=== PATIENT | female | born 2000 | race African-American/Black ===

== ENCOUNTER 2019-01-14 15:33 | Observation (INO) | payer MEDICAID ==
[~2019-01-14] VITALS: Ht 160 cm; Wt 91.2 kg
[2019-01-14] MEDS ORDERED: ONDANSETRON HCL 4MG/2ML INJ IV NR (16:30)
[2019-01-14] MEDS ORDERED: LACTATED RINGERS 1,000 ML IV SCH (16:30)
[2019-01-14 17:14] LABS: CLARITY URINE CLEAR (CLEAR); COLOR URINE YELLOW (YELLOW); KETONES URINE NEGATIVE (NEGATIVE); LEUKOCYTE ESTERASE URINE NEGATIVE (NEGATIVE); NITRITE URINE NEGATIVE (NEGATIVE); OCCULT BLOOD URINE NEGATIVE (NEGATIVE); PROTEIN URINE NEGATIVE (NEGATIVE); UROBILINOGEN URINE 0.2 E.U./dL (0.2-1.0)
[2019-01-14 17:16] LABS: BASOPHILS % 0.8 % (0.0-2.0); EOSINOPHILS % 1.7 % (0.0-5.0); HEMATOCRIT. 35.3 % (36.0-48.0); HEMOGLOBIN. 11.6 g/dL (12.0-16.0); LYMPHOCYTES % 20.3 % (20.0-50.0); MEAN CORPUSCULAR HEMOGLOBIN 28.4 pg (28.0-32.0); MEAN CORPUSCULAR VOLUME 86.6 fL (81.0-99.0); MEAN PLATELET VOLUME 8.8 fl (7.4-10.4); MONOCYTES % 6.6 % (2.0-8.0); NEUTROPHILS % 70.6 % (40.0-76.0); PLATELET 278 x1000/uL (130-400); RED BLOOD CELL COUNT 4.07 mill/uL (4.2-5.4)
[2019-01-14 17:21] LABS: CHLORIDE 109 mEq/L (98-107)
[2019-01-14] MEDS ORDERED: ACETAMINOPHEN 500MG TABLET PO NR (18:30)
[2019-01-14] MEDS ORDERED: ACETAMINOPHEN 500MG TABLET PO SCH (18:30)
== END 2019-01-14 19:05 | disposition home or self-care (01) ==
LOC: 8 EST LDRP 15:33
PROVIDERS: ADMIT Obstetrics & Gynecology; ATTEND Obstetrics & Gynecology
DX: O21.2 Late vomiting of pregnancy (principal); O62.9 Abnormality of forces of labor, unspecified; O26.892 Other specified pregnancy related conditions, second trimester; R51 Headache; Z3A.25 25 weeks gestation of pregnancy
CPT/HCPCS: 36415; 76805; 76818; 80053; 81003; 85025; 96374; 99281; G0378; J2405; 96360

== ENCOUNTER 2019-01-19 17:24 | Observation (INO) | payer SELFPAY ==
[~2019-01-19] VITALS: Ht 160 cm; Wt 91.2 kg
[2019-01-19] MEDS ORDERED: PNV11TAB5 PO (18:24)
[2019-01-19 19:08] LABS: CLARITY URINE CLOUDY (CLEAR); COLOR URINE YELLOW (YELLOW); KETONES URINE TRACE (NEGATIVE); LEUKOCYTE ESTERASE URINE 2+ (NEGATIVE); NITRITE URINE NEGATIVE (NEGATIVE); OCCULT BLOOD URINE NEGATIVE (NEGATIVE); PH URINE 6.5 (4.5-8.0); PROTEIN URINE TRACE (NEGATIVE); SPECIFIC GRAVITY URINE 1.031 (1.005-1.030)
[2019-01-19] MEDS ORDERED: FLUCONAZOLE 150MG TABLET PO NR (20:00)
[2019-01-19] MEDS ORDERED: CEFTRIAXONE SODIUM 250 MG/VIAL IM NR (20:45)
== END 2019-01-19 22:30 | disposition home or self-care (01) ==
LOC: ER 17:24 → 8 EST LDRP 17:39
PROVIDERS: ADMIT Obstetrics & Gynecology; ATTEND Obstetrics & Gynecology
DX: O26.892 Other specified pregnancy related conditions, second trimester (principal); R10.9 Unspecified abdominal pain; O99.89 Other specified diseases and conditions complicating pregnancy, childbirth and the puerperium; M54.9 Dorsalgia, unspecified; N89.8 Other specified noninflammatory disorders of vagina; Z3A.26 26 weeks gestation of pregnancy
CPT/HCPCS: 81003; 96372; 99281; G0378; J0696

== ENCOUNTER 2019-02-10 18:51 | Observation (INO) | payer MEDICAID ==
[~2019-02-10] VITALS: Ht 160 cm; Wt 96.2 kg
[~2019-02-10 18:51] MED LIST: PNV11TAB5 PO
[2019-02-10 19:49] LABS: CLARITY URINE CLOUDY (CLEAR); COLOR URINE YELLOW (YELLOW); KETONES URINE 2+ (NEGATIVE); LEUKOCYTE ESTERASE URINE 1+ (NEGATIVE); NITRITE URINE NEGATIVE (NEGATIVE); OCCULT BLOOD URINE NEGATIVE (NEGATIVE); PROTEIN URINE NEGATIVE (NEGATIVE); SPECIFIC GRAVITY URINE 1.015 (1.005-1.030)
[2019-02-10] MEDS ORDERED: DEXT 5%/LACTATED RINGERS 1,000 ML IV STA (19:57)
[2019-02-10] MEDS ORDERED: DEXT 5%/LACTATED RINGERS 1,000 ML IV SCH (19:58)
[2019-02-10] MEDS ORDERED: PREN-176 MT (22:15)
== END 2019-02-10 22:30 | disposition home or self-care (01) ==
LOC: 8 EST LDRP 18:51
PROVIDERS: ADMIT Obstetrics & Gynecology; ATTEND Obstetrics & Gynecology
DX: O26.893 Other specified pregnancy related conditions, third trimester (principal); R50.9 Fever, unspecified; R10.9 Unspecified abdominal pain; Z3A.29 29 weeks gestation of pregnancy
CPT/HCPCS: 76805; 76818; 81003; 99281; G0378

== ENCOUNTER 2019-02-10 22:58 | Emergency (ER) | payer MEDICAID ==
[~2019-02-10] VITALS: Ht 160 cm; Wt 96.0 kg
[~2019-02-10 22:58] MED LIST changes: +PREN-176 MT
[2019-02-11 03:27] VITALS: BP 123/67
== END 2019-02-11 03:34 | disposition home or self-care (01) ==
LOC: ER 22:58
DX: J02.9 Acute pharyngitis, unspecified (principal); J45.909 Unspecified asthma, uncomplicated
CPT/HCPCS: 87070; 87430; 99283

== ENCOUNTER 2021-09-07 17:24 | Emergency (ER) | payer MEDICAID ==
[~2021-09-07] VITALS: Ht 160 cm; Wt 230.0 kg
[2021-09-07 18:21] VITALS: BP 137/62
[2021-09-07 19:04] LABS: HEMATOCRIT. 35.1 % (36.0-48.0); HEMOGLOBIN. 10.7 g/dL (12.0-16.0); MEAN CORPUSCULAR HEMOGLOBIN 21.7 pg (28.0-32.0); MEAN CORPUSCULAR VOLUME 71.2 fL (81.0-99.0); MEAN PLATELET VOLUME 9.4 fl (7.4-10.4); PLATELET 358 x1000/uL (130-400); RED BLOOD CELL COUNT 4.92 mill/uL (4.2-5.4); RED CELL DISTRIBUTION WIDTH 21.5 % (11.6-14.6)
[2021-09-07 19:08] LABS: CHLORIDE 107 mEq/L (98-107)
[2021-09-07 20:39] LABS: CLARITY URINE CLEAR (CLEAR); COLOR URINE YELLOW (YELLOW); KETONES URINE TRACE (NEGATIVE); LEUKOCYTE ESTERASE URINE NEGATIVE (NEGATIVE); NITRITE URINE NEGATIVE (NEGATIVE); OCCULT BLOOD URINE NEGATIVE (NEGATIVE); PH URINE 5.5 (4.5-8.0); PROTEIN URINE 1+ (NEGATIVE); SPECIFIC GRAVITY URINE 1.042 (1.005-1.030); UROBILINOGEN URINE 0.2 E.U./dL (0.2-1.0)
[2021-09-07 21:22] LABS: PLATELET ESTIMATE NORMAL
[2021-09-07] MEDS ORDERED: ALBU6.7H15 INH (21:36)
== END 2021-09-07 21:42 | disposition home or self-care (01) ==
LOC: ER 17:24
DX: U07.1 COVID-19 (principal); R10.11 Right upper quadrant pain
CPT/HCPCS: 36415; 80053; 81003; 81025; 85025; 87426; 99283

== ENCOUNTER 2021-12-17 19:46 | Emergency (ER) | payer MEDICAID, OTHER ==
[~2021-12-17] VITALS: Ht 160 cm; Wt 108.0 kg
[~2021-12-17 19:46] MED LIST changes: +ALBU6.7H15 INH; +FERR89TA MT; +NITR-87 MT
[2021-12-17 19:55] VITALS: BP 132/81
[2021-12-17 20:57] LABS: BASOPHILS % 0.9 % (0.0-2.0); EOSINOPHILS % 4.7 % (0.0-5.0); HEMATOCRIT. 36.1 % (36.0-48.0); HEMOGLOBIN. 11.2 g/dL (12.0-16.0); LYMPHOCYTES % 58.5 % (20.0-50.0); MEAN CORPUSCULAR HEMOGLOBIN 24.4 pg (28.0-32.0); MEAN CORPUSCULAR VOLUME 78.6 fL (81.0-99.0); MEAN PLATELET VOLUME 8.5 fl (7.4-10.4); MONOCYTES % 9.8 % (2.0-8.0); NEUTROPHILS % 26.1 % (40.0-76.0); PLATELET 286 x1000/uL (130-400); RED CELL DISTRIBUTION WIDTH 18.9 % (11.6-14.6)
[2021-12-17 21:04] LABS: CHLORIDE 107 mEq/L (98-107)
[2021-12-17 21:19] LABS: B-HCG QUANTITATIVE < 1 mIU/mL (<3)
[2021-12-17 21:51] LABS: CLARITY URINE CLEAR (CLEAR); COLOR URINE YELLOW (YELLOW); KETONES URINE TRACE (NEGATIVE); LEUKOCYTE ESTERASE URINE NEGATIVE (NEGATIVE); NITRITE URINE NEGATIVE (NEGATIVE); OCCULT BLOOD URINE NEGATIVE (NEGATIVE); PROTEIN URINE NEGATIVE (NEGATIVE); SPECIFIC GRAVITY URINE 1.027 (1.005-1.030); UROBILINOGEN URINE 0.2 E.U./dL (0.2-1.0)
== END 2021-12-17 22:12 | disposition home or self-care (01) ==
LOC: ER 19:46
DX: O02.0 Blighted ovum and nonhydatidiform mole (principal)
CPT/HCPCS: 36415; 76801; 80053; 81003; 84702; 85025; 86850; 86900; 99284

== ENCOUNTER 2022-01-29 14:00 | Emergency (ER) | payer MEDICAID ==
[~2022-01-29] VITALS: Ht 160 cm; Wt 107.0 kg
[2022-01-29 14:15] VITALS: BP 123/69
[2022-01-29] MEDS ORDERED: ALBUTEROL 6.7GM HFA INHALER ORI ONE (14:30)
[2022-01-29] MEDS ORDERED: GUAI-741 MT (17:27)
[2022-01-29] MEDS ORDERED: ALBU6.7H9 INH (17:27)
== END 2022-01-29 18:08 | disposition home or self-care (01) ==
LOC: ER 14:00
DX: J40 Bronchitis, not specified as acute or chronic (principal); Z98.890 Other specified postprocedural states
CPT/HCPCS: 71045; 94640; 99283